=== PATIENT | female | born 1990 | race Caucasian/White ===

== ENCOUNTER 2021-10-27 12:54 | Emergency (ER) | payer MEDICAID ==
[~2021-10-27] VITALS: Ht 160 cm; Wt 63.6 kg
[2021-10-27] MEDS ORDERED: ondansetron/PF 4mg/2ml inj IV ONE ×2 (13:20→15:30)
[2021-10-27] MEDS ORDERED: normal saline 1000ML IV soln IVB ONE ×2 (13:20→15:30)
[2021-10-27 13:51] LABS: BASOPHILS % (AUTO) 0.4 % (0-1); EOSINOPHILS # (AUTO) 0.1 X10'3 (0-0.9); EOSINOPHILS % (AUTO) 0.6 % (0-6); HEMATOCRIT 42.5 % (35.0-45.0); HEMOGLOBIN 14.4 g/dl (12.0-16.0); LYMPHOCYTES # (AUTO) 1.4 X10'3 (1.1-4.8); LYMPHOCYTES % (AUTO) 14.4 % (21-51); MEAN CORPUSCULAR HEMOGLOBIN 30.1 PG (27.0-31.0); MEAN CORPUSCULAR VOLUME 88.6 FL (78-98); MEAN PLATELET VOLUME 7.5 FL (7.4-10.4); MONOCYTES # (AUTO) 0.6 X10'3 (0-0.9); MONOCYTES % (AUTO) 6.6 % (2-12); NEUTROPHILS # (AUTO) 7.4 X10'3 (1.8-7.7); PLATELET COUNT 337 X10'3 (140-440); RED CELL DISTRIBUTION WIDTH 12.5 % (11.5-14.5); WHITE BLOOD COUNT 9.5 X10'3 (4.5-11.0)
[2021-10-27 14:06] LABS: ALANINE AMINOTRANSFERASE 20 U/L (12-78); ALBUMIN 4.1 G/DL (3.4-5.0); ALBUMIN/GLOBULIN RATIO 1.1 (1.1-1.5); ALKALINE PHOSPHATASE 56 IU/L (46-116); ANION GAP 11 (8-16); ASPARTATE AMINO TRANSFERASE 11 U/L (10-37); BILIRUBIN,TOTAL 0.5 MG/DL (0.1-1.0); BLOOD UREA NITROGEN 13 MG/DL (7-18); BUN/CREATININE RATIO 20.3 (6.6-38.0); CALCIUM 9.1 MG/DL (8.5-10.1); CHLORIDE 105 MMOL/L (99-107); CREATININE 0.64 MG/DL (0.40-0.90); GLUCOSE 91 MG/DL (70-104); POTASSIUM 3.7 MMOL/L (3.5-5.1); SODIUM 140 MMOL/L (135-145); TOTAL CARBON DIOXIDE 23.9 MMOL/L (24-32); TOTAL PROTEIN 7.8 G/DL (6.4-8.2); eGFR > 90 ML/MIN
[2021-10-27] MEDS ORDERED: ONDA8TAB13 PO (15:32)
--- NOTE | 2021-10-27 16:26 | NUR ---
Pt feeling much better after Zofran and fluids (still infusing). Clarified with MD about orders- only 2L NS to be given and 4mg Zofran
--- NOTE | 2021-10-27 17:15 | NUR ---
Pt has no needs at this time. States she feels better.
[2021-10-27 17:59] VITALS: BP 127/65
--- NOTE | 2021-10-27 18:01 | NUR ---
Please note. Pt's HR was 48-50s on arrival. Pt is very athletic and has no symptoms with her bradycardia. Denies dizziness, weakness or other cardiac symptoms. Nausea much improved after fluids and Zofran.
== END 2021-10-27 18:02 | disposition home or self-care (01) ==
LOC: ER 12:56
DX: O21.0 Mild hyperemesis gravidarum (principal); Z3A.01 Less than 8 weeks gestation of pregnancy; Z79.899 Other long term (current) drug therapy
CPT/HCPCS: 36415; 80053; 85025; 96361; 96374; 99283; J2405; J7030